=== PATIENT | female | born 1980 | race Caucasian/White ===

== ENCOUNTER 2017-12-22 21:52 | Emergency (ER) | payer MEDICAID, OTHER ==
[~2017-12-22] VITALS: Ht 170.2 cm; Wt 60.0 kg
[~2017-12-22 21:52] MED LIST: CEPH500C5 PO; DICL100G15 TOP; HYDR-569 PO
[2017-12-22] MEDS ORDERED: HYDROcodone/acetaminophen 10/325mg tab PO ONE (23:00)
[2017-12-22 23:53] VITALS: BP 105/55
[2017-12-23] MEDS ORDERED: IBUP-1984 PO (00:06)
[2017-12-23] MEDS ORDERED: TRAM50TA2 PO (00:06)
== END 2017-12-23 00:13 | disposition home or self-care (01) ==
LOC: ER 21:53
DX: S20.212A Contusion of left front wall of thorax, initial encounter (principal); S00.03XA Contusion of scalp, initial encounter; S80.212A Abrasion, left knee, initial encounter; F15.90 Other stimulant use, unspecified, uncomplicated; V19.9XXA Pedal cyclist (driver) (passenger) injured in unspecified traffic accident, initial encounter; Y93.55 Activity, bike riding; Y92.89 Other specified places as the place of occurrence of the external cause; Y99.8 Other external cause status; Z87.891 Personal history of nicotine dependence
CPT/HCPCS: 71101; 99284

== ENCOUNTER 2018-07-28 21:31 | Emergency (ER) | payer MEDICAID ==
[~2018-07-28] VITALS: Ht 170.2 cm; Wt 63.6 kg
[2018-07-28 22:02] VITALS: BP 141/87
[2018-07-29] MEDS ORDERED: DICL50TA8 PO (00:07)
[2018-07-29] MEDS ORDERED: ONDA4TAB6 PO (00:07)
== END 2018-07-29 00:15 | disposition home or self-care (01) ==
LOC: ER 21:36
DX: K08.89 Other specified disorders of teeth and supporting structures (principal); R11.2 Nausea with vomiting, unspecified; F15.90 Other stimulant use, unspecified, uncomplicated; Z88.5 Allergy status to narcotic agent
CPT/HCPCS: 99283